=== PATIENT | male | born 1965 | race Caucasian/White ===

== ENCOUNTER 2020-10-13 02:24 | Emergency (ER) | payer BC ==
[2020-10-13 03:56] VITALS: BMI 34.5
[2020-10-13] MEDS ORDERED: IBUPROFEN 400 MG TABLET (FP) PO ONE ×2 (03:57→04:06)
[2020-10-13] MEDS ORDERED: ONDANSETRON 4 MG TABLET PO ONE (03:57)
[2020-10-13] MEDS ORDERED: ONDANSETRON *ODT* 4 MG TABLET ONE (04:06)
[2020-10-13] MEDS ORDERED: clonazePAM 0.5 MG ODT TABLETS SL ONE (05:20)
[2020-10-13] MEDS ORDERED: clonazePAM 0.25 MG ODT TABLETS SL ONE (05:33)
[2020-10-13] MEDS ORDERED: methaDONE HCL 10 MG TABLET (FOR DETOX USE ONLY) PO ONE (10:11)
[2020-10-13] MEDS ORDERED: methaDONE HCL 10 MG TABLET ONE (10:21)
[2020-10-13 11:02] VITALS: BP 145/92; PULSE 104; TEMP 97.9
== END 2020-10-13 11:20 | disposition home or self-care (01) ==
LOC: JER 02:24
DX: F11.20 Opioid dependence, uncomplicated (principal)
CPT/HCPCS: 99283-25

== ENCOUNTER 2020-10-13 11:55 | Inpatient (IN) | payer BC ==
[2020-10-13 12:19] VITALS: BMI 33.7
[2020-10-13] MEDS ORDERED: MENTHOL/PHENOL 1 EACH UD MM PRN (13:07)
[2020-10-13] MEDS ORDERED: ACETAMINOPHEN 325 MG TABLET (FP) PO PRN (13:07)
[2020-10-13] MEDS ORDERED: NICOTINE 10 MG CARTRIDGE (INHALER) IH PRN (13:07)
[2020-10-13] MEDS ORDERED: MAGNESIUM HYDROX 2400MG/30ML ORAL SUSPENSION 30 ML CUP PO PRN (13:07)
[2020-10-13] MEDS ORDERED: BISMUTH SUBSALICYLATE 524 MG/30 ML PO PRN (13:07)
[2020-10-13] MEDS ORDERED: MAG HYDROX/AL HYDROX/SIMETH 30 ML UNIT-DOSE CUP PO PRN (13:07)
[2020-10-13] MEDS ORDERED: MAGNESIUM CITRATE 300 ML BOTTLE PO PRN (13:07)
[2020-10-13] MEDS ORDERED: ONDANSETRON *ODT* 4 MG TABLET SL PRN (13:07)
[2020-10-13] MEDS ORDERED: IBUPROFEN 400 MG TABLET (FP) PO PRN (13:07)
[2020-10-13] MEDS ORDERED: hydrOXYzine PAMOATE 25 MG CAPSULE (FP) PO ONE (13:37)
[2020-10-13] MEDS ORDERED: methaDONE HCL 10 MG TABLET (FOR DETOX USE ONLY) ONE (13:37)
[2020-10-13] MEDS ORDERED: methaDONE HCL 10 MG TABLET (FOR DETOX USE ONLY) PO ONE (13:45)
[2020-10-13] MEDS: hydrOXYzine PAMOATE 25 MG CAPSULE (FP) PO SCH ×3 (14:00→22:22)
[2020-10-13] MEDS ORDERED: amLODIPine BESYLATE 5 MG TABLET (FP) ONE (14:38)
[2020-10-13] MEDS: amLODIPine BESYLATE 10 MG TABLET (FP) PO SCH (14:41)
[2020-10-13] MEDS: ACETAMINOPHEN 325 MG TABLET (FP) PO PRN (16:55)
[2020-10-13] MEDS: diazePAM 5 MG TABLET PO PRN (20:00)
[2020-10-13] MEDS: MELATONIN 5 MG TABLETS PO SCH (22:22)
[2020-10-13] MEDS: THIAMINE HCL 100 MG TABLET (FP) PO SCH (22:22)
[2020-10-13] MEDS: cloNIDine HCL 0.1 MG TABLET PO PRN (22:22)
[2020-10-13] MEDS: APIXABAN 5 MG TABLET PO SCH (22:22)
[2020-10-13 23:03] LABS: URINE APPEARANCE CLEAR; URINE BILIRUBIN NEGATIVE (NEGATIVE); URINE COLOR YELLOW; URINE GLUCOSE (UA) NEGATIVE (NEGATIVE); URINE KETONE NEGATIVE (NEGATIVE); URINE LEUK ESTERASE NEGATIVE (NEGATIVE); URINE NITRITE NEGATIVE (NEGATIVE); URINE PROTEIN NEGATIVE (NEGATIVE); URINE UROBILINOGEN 0.2 mg/dL (0.2-1.0)
[2020-10-14] MEDS: hydrOXYzine PAMOATE 25 MG CAPSULE (FP) PO SCH ×2 (05:28→10:37)
[2020-10-14] MEDS ORDERED: methaDONE HCL 10 MG TABLET (FOR DETOX USE ONLY) ONE (08:57)
[2020-10-14] MEDS: ATORVASTATIN CA 80 MG TABLET (FP) PO SCH (09:54)
[2020-10-14] MEDS: APIXABAN 5 MG TABLET PO SCH ×2 (09:54→22:13)
[2020-10-14] MEDS: METHOCARBAMOL 500 MG TABLET PO PRN ×2 (09:54→22:13)
[2020-10-14] MEDS: FENOFIBRIC ACID 135 MG CAP PO SCH (09:54)
[2020-10-14] MEDS: VALSARTAN 40 MG TABLET PO SCH (09:55)
[2020-10-14] MEDS: diazePAM 5 MG TABLET PO PRN ×3 (09:55→18:08)
[2020-10-14] MEDS: PRENATAL VITAMINS W/ FOLIC ACID TABLET (FP) PO SCH (09:56)
[2020-10-14] MEDS: amLODIPine BESYLATE 10 MG TABLET (FP) PO SCH (10:37)
[2020-10-14 11:11] LABS: HEMATOCRIT 39.5 % (35.4-49); HEMOGLOBIN 13.6 GM/dL (11.7-16.9); MCH 28.8 pg (25.7-33.7); MCHC 34.3 g/dl (32.0-35.9); MEAN CELL VOLUME 83.8 fl (80-96); MEAN PLT VOLUME 7.4 fl (7.5-11.1); PLATELET COUNT 322 10^3/uL (134-434); RBC 4.71 M/mm3 (4.00-5.60); RDW 15.6 % (11.9-15.9); WHITE BLOOD COUNT 4.8 K/mm3 (4.0-10.0)
[2020-10-14 11:15] LABS: INR 1.05 (0.83-1.09); PROTHROMBIN TIME (PATIENT) 12.7 SEC (9.7-13.0)
[2020-10-14] MEDS ORDERED: LIDOCAINE 5% TOPICAL PATCH TP ONE (11:15)
[2020-10-14 11:26] LABS: BLOOD UREA NITROGEN 14.6 mg/dL (7-18)
[2020-10-14 11:28] LABS: BILIRUBIN,TOTAL 0.4 mg/dL (0.2-1); TOT PROT 7.1 g/dl (6.4-8.2)
[2020-10-14 11:30] LABS: CREATININE 1.2 mg/dL (0.55-1.3)
[2020-10-14] MEDS: ACETAMINOPHEN 325 MG TABLET (FP) PO PRN (17:31)
[2020-10-14] MEDS: LIDOCAINE PATCH REMOVAL MC SCH (22:10)
[2020-10-14] MEDS: THIAMINE HCL 100 MG TABLET (FP) PO SCH (22:13)
[2020-10-14] MEDS: MELATONIN 5 MG TABLETS PO SCH (22:13)
[2020-10-15] MEDS: cloNIDine HCL 0.1 MG TABLET PO PRN (01:08)
[2020-10-15] MEDS: diazePAM 5 MG TABLET PO PRN ×5 (02:44→22:40)
[2020-10-15] MEDS ORDERED: methaDONE HCL 10 MG TABLET (FOR DETOX USE ONLY) PO ONE (10:00)
[2020-10-15] MEDS: PRENATAL VITAMINS W/ FOLIC ACID TABLET (FP) PO SCH (10:17)
[2020-10-15] MEDS: ATORVASTATIN CA 80 MG TABLET (FP) PO SCH (10:18)
[2020-10-15] MEDS: amLODIPine BESYLATE 10 MG TABLET (FP) PO SCH (10:18)
[2020-10-15] MEDS: APIXABAN 5 MG TABLET PO SCH ×2 (10:18→22:36)
[2020-10-15] MEDS: LIDOCAINE 5% TOPICAL PATCH TP SCH (10:20)
[2020-10-15] MEDS: FENOFIBRIC ACID 135 MG CAP PO SCH (10:22)
[2020-10-15] MEDS: PARoxetine HCL 20 MG TABLET PO SCH (10:22)
[2020-10-15] MEDS: VALSARTAN 40 MG TABLET PO SCH (10:22)
[2020-10-15] MEDS: ACETAMINOPHEN 325 MG TABLET (FP) PO PRN (12:44)
[2020-10-15] MEDS: METHOCARBAMOL 500 MG TABLET PO PRN (22:35)
[2020-10-15] MEDS: LIDOCAINE PATCH REMOVAL MC SCH (22:36)
[2020-10-15] MEDS: hydrOXYzine PAMOATE 25 MG CAPSULE (FP) PO PRN (22:36)
[2020-10-15] MEDS: MELATONIN 5 MG TABLETS PO SCH (22:36)
[2020-10-15] MEDS: THIAMINE HCL 100 MG TABLET (FP) PO SCH (22:37)
[2020-10-15] MEDS: SUVOREXANT 10 MG TABLET PO PRN (22:37)
[2020-10-16] MEDS: diazePAM 5 MG TABLET PO PRN ×2 (04:44→11:23)
[2020-10-16] MEDS ORDERED: methaDONE HCL 10 MG TABLET (FOR DETOX USE ONLY) ONE (09:34)
[2020-10-16] MEDS: FENOFIBRIC ACID 135 MG CAP PO SCH (10:21)
[2020-10-16] MEDS: PARoxetine HCL 20 MG TABLET PO SCH (10:21)
[2020-10-16] MEDS: APIXABAN 5 MG TABLET PO SCH ×2 (10:21→22:09)
[2020-10-16] MEDS: VALSARTAN 40 MG TABLET PO SCH (10:21)
[2020-10-16] MEDS: PRENATAL VITAMINS W/ FOLIC ACID TABLET (FP) PO SCH (10:22)
[2020-10-16] MEDS: amLODIPine BESYLATE 10 MG TABLET (FP) PO SCH (10:22)
[2020-10-16] MEDS: ATORVASTATIN CA 80 MG TABLET (FP) PO SCH (11:23)
[2020-10-16] MEDS: LIDOCAINE 5% TOPICAL PATCH TP SCH (11:23)
[2020-10-16] MEDS: METHOCARBAMOL 500 MG TABLET PO PRN (14:59)
[2020-10-16] MEDS: hydrOXYzine PAMOATE 25 MG CAPSULE (FP) PO PRN ×2 (16:28→20:45)
[2020-10-16] MEDS: THIAMINE HCL 100 MG TABLET (FP) PO SCH (22:08)
[2020-10-16] MEDS: MELATONIN 5 MG TABLETS PO SCH (22:09)
[2020-10-16] MEDS: SUVOREXANT 10 MG TABLET PO PRN (22:15)
[2020-10-16] MEDS ORDERED: diazePAM 5 MG TABLET PO ONE (22:57)
[2020-10-16] MEDS: LIDOCAINE PATCH REMOVAL MC SCH (23:17)
[2020-10-17] MEDS: hydrOXYzine PAMOATE 25 MG CAPSULE (FP) PO PRN ×2 (06:44→18:03)
[2020-10-17] MEDS ORDERED: diazePAM 5 MG TABLET PO ONE (09:45)
[2020-10-17] MEDS ORDERED: methaDONE HCL 10 MG TABLET (FOR DETOX USE ONLY) PO ONE (10:00)
[2020-10-17] MEDS: APIXABAN 5 MG TABLET PO SCH ×2 (10:22→22:14)
[2020-10-17] MEDS: VALSARTAN 40 MG TABLET PO SCH (10:22)
[2020-10-17] MEDS: amLODIPine BESYLATE 10 MG TABLET (FP) PO SCH (10:22)
[2020-10-17] MEDS: FENOFIBRIC ACID 135 MG CAP PO SCH (10:22)
[2020-10-17] MEDS: PRENATAL VITAMINS W/ FOLIC ACID TABLET (FP) PO SCH (10:22)
[2020-10-17] MEDS: ATORVASTATIN CA 80 MG TABLET (FP) PO SCH (10:22)
[2020-10-17] MEDS: PARoxetine HCL 20 MG TABLET PO SCH (10:23)
[2020-10-17] MEDS: METHOCARBAMOL 500 MG TABLET PO PRN (10:23)
[2020-10-17] MEDS: LIDOCAINE 5% TOPICAL PATCH TP SCH (10:27)
[2020-10-17] MEDS: diazePAM 5 MG TABLET PO PRN ×3 (13:51→22:13)
[2020-10-17] MEDS ORDERED: SUVOREXANT 15 MG TABLET PO PRN (22:00)
[2020-10-17] MEDS: MELATONIN 5 MG TABLETS PO SCH (22:14)
[2020-10-17] MEDS: LIDOCAINE PATCH REMOVAL MC SCH (22:14)
[2020-10-17] MEDS: THIAMINE HCL 100 MG TABLET (FP) PO SCH (22:14)
[2020-10-18] MEDS: diazePAM 5 MG TABLET PO PRN ×2 (02:52→07:08)
[2020-10-18] MEDS: hydrOXYzine PAMOATE 25 MG CAPSULE (FP) PO PRN (06:00)
[2020-10-18 08:17] VITALS: BP 145/88; PULSE 84; TEMP 96.9
== END 2020-10-18 07:35 | disposition home or self-care (01) | DRG 897 ==
LOC: YASAS 11:55 → Y3N 13:37
PROVIDERS: ADMIT Allergy & Immunology; ATTEND Allergy & Immunology
PROC: HZ2ZZZZ Detoxification Services for Substance Abuse Treatment (ICD-10-PCS; principal; 2020-10-13)
DX: F11.23 Opioid dependence with withdrawal (principal); F13.20 Sedative, hypnotic or anxiolytic dependence, uncomplicated; F41.9 Anxiety disorder, unspecified; I25.10 Atherosclerotic heart disease of native coronary artery without angina pectoris; I10 Essential (primary) hypertension; Z95.5 Presence of coronary angioplasty implant and graft; E78.5 Hyperlipidemia, unspecified; E11.9 Type 2 diabetes mellitus without complications; Z79.4 Long term (current) use of insulin; E66.9 Obesity, unspecified; Z68.33 Body mass index [BMI] 33.0-33.9, adult; Z86.711 Personal history of pulmonary embolism; Z79.01 Long term (current) use of anticoagulants
CPT/HCPCS: 36415; 80053; 81003; 82962; 85027; 85610; 86780; 93005; 93010; C9803; J0735; Q0162; U0003; U0005